=== PATIENT | female | born 1990 | race Caucasian/White ===

== ENCOUNTER 2020-07-19 06:05 | Inpatient (IN) | payer OTHER, SELFPAY ==
[~2020-07-19] VITALS: Ht 160 cm; Wt 71.2 kg
[2020-07-19] MEDS ORDERED: LR 1,000 ML IV SCH ×2 (06:15→10:45)
[2020-07-19] MEDS ORDERED: CEFAZOLIN 2 GM IVPB PREMIX 50 ML IV ONE (06:15)
[2020-07-19 06:31] LABS: BASOPHILS # (AUTO) 0.1 K/uL (0.0-0.2); BASOPHILS % (AUTO) 0.7 % (0.0-2.0); EOSINOPHILS # (AUTO) 0.1 K/uL (0.0-0.4); EOSINOPHILS % (AUTO) 0.8 % (0.0-4.0); HEMATOCRIT 36.3 % (36-48); HEMOGLOBIN 12.3 g/dL (12.0-16.0); LYMPHOCYTES # (AUTO) 1.6 K/uL (1.0-5.5); MEAN CORPUSCULAR HEMOGLOBIN 26 pg (27-31); MEAN CORPUSCULAR HGB CONC 34 % (32-36); MEAN CORPUSCULAR VOLUME 77 fL (79.0-98.0); MONOCYTES # (AUTO) 0.5 K/uL (0.0-1.0); MONOCYTES % (AUTO) 5.8 % (1.7-9.3); NEUTROPHILS # (AUTO) 5.6 K/uL (1.8-7.7); NEUTROPHILS % (AUTO) 71.7 % (40.0-70.0); PLATELET COUNT (AUTO) 169 K/uL (130-430); RED BLOOD CELL COUNT(AUTO) 4.73 MIL/uL (4.2-6.2); WHITE BLOOD COUNT (AUTO) 7.8 K/uL (4.8-10.8)
[2020-07-19 06:49] VITALS: BP_SYST 130
[2020-07-19] MEDS ORDERED: MORPHINE SULFATE 10MG/10ML PF AMP EP ONE (09:50)
[2020-07-19] MEDS ORDERED: BUPIVACAINE /DEX PF 0.75% SPINAL 2 ML AMP INJ ONE (09:50)
[2020-07-19] MEDS ORDERED: NS IRRIG SOLN 1000 ML IR ONE (09:50)
[2020-07-19] MEDS ORDERED: METOCLOPRAMIDE HCL 10 MG/2 ML VIAL IVP ONE (09:50)
[2020-07-19] MEDS ORDERED: LR 1,000 ML IV.SOLN IV ONE (09:50)
[2020-07-19] MEDS ORDERED: ONDANSETRON HCL 4 MG/2 ML VIAL IVP ONE (09:50)
[2020-07-19] MEDS ORDERED: TRIAMCINOLONE ACETONIDE 40 MG/ML IM ONE (09:50)
[2020-07-19] MEDS ORDERED: KETOROLAC TROMETHAMINE 60 MG/2 ML VIAL IM PRN (10:30)
[2020-07-19] MEDS ORDERED: NALOXONE HCL 0.4 MG/ML AMP (NARCAN) IVP PRN ×3 (10:30→10:45)
[2020-07-19] MEDS ORDERED: ONDANSETRON HCL 4 MG/2 ML VIAL IVP PRN (10:30)
[2020-07-19] MEDS ORDERED: DIPHENHYDRAMINE INJ 50 MG/ML VIAL IVP PRN (10:30)
[2020-07-19 10:44] VITALS: BP_SYST 133
[2020-07-19] MEDS ORDERED: ANUSOL 1 EA SUPP.RECT (PREPARATION H) RC PRN (10:45)
[2020-07-19] MEDS ORDERED: OXYCODONE/ACETAMINOPHEN *10*mg/325 mg TABLET PO PRN (10:45)
[2020-07-19] MEDS ORDERED: SENNOSIDES/DOCUSATE SODIUM 1 TAB TABLET(SENOKOT-S) PO PRN (10:45)
[2020-07-19] MEDS ORDERED: RHO(D) IMMUNE GLOBULIN/MALTOSE 1500 UNITS/1.3 ML (WINHRO) IM PRN (10:45)
[2020-07-19] MEDS ORDERED: HYDROcodone/ACETAMIN 5-325 MG TAB (NORCO/ VICODIN) PO PRN (10:45)
[2020-07-19] MEDS ORDERED: TEMAZEPAM 15 MG CAPSULE PO PRN (10:45)
[2020-07-19] MEDS ORDERED: LANOLIN 7 GM OINT. TP PRN (10:45)
[2020-07-19] MEDS ORDERED: MEASLES,MUMPS&RUBELLA VACC/PF 12500 UNIT/0.5 ML VIAL SUBQ PRN (10:45)
[2020-07-19] MEDS ORDERED: BISACODYL 10 MG/SUPPOSITORY RC PRN (10:45)
[2020-07-19] MEDS ORDERED: OXYCODONE/ACETAMINOPHEN 5-325 TABLET PO PRN (10:45)
[2020-07-19] MEDS ORDERED: DIPH-TET-PERTUS Vaccine 0.5 ML VIAL (ADACEL) I.M. PRN (10:45)
[2020-07-19] MEDS ORDERED: OXYTOCIN/0.9 % SODIUM CHLORIDE 1,000 ML IV SCH (10:45)
[2020-07-19] MEDS ORDERED: DIPHENHYDRAMINE INJ 50 MG/ML VIAL ONE (11:20)
[2020-07-19] MEDS: CEFAZOLIN 1 GM IVPB PREMIX 50 ML IV SCH (18:08)
[2020-07-19] MEDS: KETOROLAC TROMETHAMINE 30 MG VIAL IVP SCH (18:09)
[2020-07-19] MEDS: SIMETHICONE 80 MG TAB.CHEW PO PRN (18:10)
[2020-07-19] MEDS: DOCUSATE SODIUM 100 MG CAPSULE PO PRN (18:10)
[2020-07-20] MEDS: CEFAZOLIN 1 GM IVPB PREMIX 50 ML IV SCH ×2 (00:14→05:35)
[2020-07-20] MEDS: KETOROLAC TROMETHAMINE 30 MG VIAL IVP SCH ×3 (00:14→12:22)
[2020-07-20] MEDS: SIMETHICONE 80 MG TAB.CHEW PO PRN (00:14)
[2020-07-20 06:33] LABS: BASOPHILS % (AUTO) 0.3 % (0.0-2.0); EOSINOPHILS % (AUTO) 0.1 % (0.0-4.0); HEMOGLOBIN 9.6 g/dL (12.0-16.0); LYMPHOCYTES % (AUTO) 10.9 % (20.5-51.5); MEAN CORPUSCULAR HEMOGLOBIN 26 pg (27-31); MEAN CORPUSCULAR HGB CONC 35 % (32-36); MEAN CORPUSCULAR VOLUME 77 fL (79.0-98.0); MONOCYTES # (AUTO) 0.6 K/uL (0.0-1.0); MONOCYTES % (AUTO) 6.8 % (1.7-9.3); NEUTROPHILS # (AUTO) 7.4 K/uL (1.8-7.7); NEUTROPHILS % (AUTO) 81.9 % (40.0-70.0); PLATELET COUNT (AUTO) 171 K/uL (130-430); RED BLOOD CELL COUNT(AUTO) 3.65 MIL/uL (4.2-6.2)
[2020-07-20] MEDS: IBUPROFEN 600 MG TABLET PO SCH ×3 (12:00→23:27)
[2020-07-20] MEDS: DOCUSATE SODIUM 100 MG CAPSULE PO PRN (21:45)
[2020-07-21] MEDS: IBUPROFEN 600 MG TABLET PO SCH ×2 (05:29→12:18)
== END 2020-07-21 14:45 | disposition home or self-care (01) | DRG 788 ==
LOC: SPU 06:05
PROVIDERS: ADMIT Specialist; ATTEND Specialist
PROC: 10D00Z1 Extraction of Products of Conception, Low, Open Approach (ICD-10-PCS; principal; 2020-07-19 09:00)
DX: O34.211 Maternal care for low transverse scar from previous cesarean delivery (principal); Z37.0 Single live birth; Z3A.39 39 weeks gestation of pregnancy; O13.3 Gestational [pregnancy-induced] hypertension without significant proteinuria, third trimester
CPT/HCPCS: 36415; 85025; 86592; 86870; 86886; 86900; 86901; J0690; J1200; J1885; J2274; J2405; J2590; J2765; J3301; J3490; J7120; U0003-CS